=== PATIENT | female | born 1960 | race Two or more races ===

== ENCOUNTER 2022-04-14 04:52 | Emergency (ER) | payer OTHER ==
[~2022-04-14] VITALS: Ht 160 cm; Wt 75.3 kg
[2022-04-14 04:56] VITALS: BP 133/77
--- NOTE | 2022-04-14 05:32 | NUR ---
Patient ambulated to bed 9.
--- NOTE | 2022-04-14 06:08 | NUR ---
Patient being evaluated by physician at bedside.
--- NOTE | 2022-04-14 06:18 | NUR ---
61/F BIB SELF FROM HOME C/O LEFT SIDED HEADACHE PAIN X3DAYS. PAIN IS ACHING /, NONRAD. PATIENT STATED THAT SHE TOOK IBUPROFEN FOR THE PAIN WITH NO RELIEF AT 3A. PATIENT DENIES N/V/D/C/VISUAL CHANGES. RR EVEN AND UNLABORED. PATIENT IS SITTING IN BED WITH AT BEDSIDE. BED IS LOW AND LOCKED. SIDE RAILS UP FOR SAFETY. ALL NEED MET. DENIES PMHX, RX NKA
[2022-04-14] MEDS ORDERED: KETOROLAC 30 MG/ML VIAL IM ONE (06:20)
[2022-04-14] MEDS ORDERED: PROCHLORPERAZINE 5 MG TAB PO ONE (06:20)
--- NOTE | 2022-04-14 06:43 | NUR ---
Pt report given to COOKIE Ngo. Transfer of care at this time.
[2022-04-14] MEDS ORDERED: NACL 0.9% 1,000 ML IV ONE (07:15)
[2022-04-14] MEDS ORDERED: LORATADINE 10 MG TAB PO ONE (07:15)
[2022-04-14] MEDS ORDERED: MAG SULF 2000 MG/WATER PREMIX 50 ML IV ONE (07:15)
--- NOTE | 2022-04-14 07:17 | NUR ---
REPORT GIVEN TO DONYA GARY, TRANSFER OF CARE AT THIS TIME
--- NOTE | 2022-04-14 07:20 | NUR ---
PT. SEEN, AAOX4, AT [facility]. STILL COMPLAINS OF HEADACHE 05/10, NO RELIEF ON PREVIOUS MEDICATION GIVEN. REQUESTED IF SHE CAN TAKE HER OWN MEDICATION FOR HER DAILY REGIMEN FOR HER HTN AND TRIGEMINALGIA. MADE AWARE AND OK TO TAKE PER MD.
[2022-04-14 10:15] VITALS: BP 145/80
--- NOTE | 2022-04-14 10:17 | NUR ---
Patient discharged with v/s stable. Written and verbal after care instructions about moigraine headache given and explained. Patient verbalized understanding. Ambulatory with steady gait. All questions addressed prior to discharge. Advised to follow up with PMD.
== END 2022-04-14 10:17 | disposition home or self-care (01) ==
LOC: MED 04:52
DX: R51.9 Headache, unspecified (principal); I10 Essential (primary) hypertension; Z98.890 Other specified postprocedural states
CPT/HCPCS: 96361; 96365; 96372; 99285; J1885; J3475; Q0163; Q0164